=== PATIENT | female | born 1960 ===

== ENCOUNTER 2019-12-01 14:31 | Inpatient (IN) | payer BC ==
[2019-12-01 15:47] LABS: #Eosinphils 0.4 thou/uL (0.0-0.7); #Lymphocytes 1.7 thou/uL (1.20-3.40); #Monocytes 0.4 thou/uL (0.11-0.59); #Neutrophils 3.3 thou/uL (1.40-6.50); %Basophils 0.2 % (0.0-1.0); %Eosinophils 6.5 % (0.0-10.0); %Monocytes 7.1 % (0.0-10.0); %Neutrophils 57.2 % (42.0-75.0); Hemoglobin 14.4 g/dL (12.0-16.0); Mean Corpuscular HGB CONC 33.9 g/dL (32.0-36.0); Mean Corpuscular Hemoglobin 27.2 pg (27.0-31.0); Mean Corpuscular Volume 80.3 fL (78.0-98.0); Mean Platelet Volume 10.4 fL (7.4-10.4); Platelet Count 233 thou/uL (130-400); RBC Distribution Width 21.8 % (11.5-14.5); Red Blood Cell (RBC) Count 5.28 mill/uL (4.20-5.40); White Blood Cell (WBC) Count 5.8 thou/uL (4.8-10.8)
[2019-12-01] MEDS ORDERED: cefTRIAXone\\ROCEPHIN 2 GM VIAL ONE (15:48)
[2019-12-01] MEDS ORDERED: Ondansetron ODT 4 MG TAB ONE (16:01)
[2019-12-01 16:04] LABS: Anisocytosis SLIGHT = 6-15 cells (100X) (0-5/hpf); MDiff Complete? YES; Platelet Morphology Comment Appears Adequate; Polychromasia SLIGHT = 2-3 cells (100X) (0-2/hpf); Target Cells SLIGHT = 2-5 cells (100X) (0-1/hpf)
[2019-12-01 16:06] LABS: ALT (SGPT) 19 U/L (8-55); AST (SGOT) 22 U/L (5-34); Albumin 3.9 g/dL (3.5-5.0); Alkaline Phosphatase 116 U/L (40-110); Anion Gap 12 mmol/L (10-20); BUN (Urea Nitrogen) 11 mg/dL (9.8-20.1); Bilirubin, Total 0.2 mg/dL (0.2-1.2); Calc. Creatinine Clearance 0 mL/min (70-130); Calcium 8.9 mg/dL (7.8-10.44); Carbon Dioxide 26 mmol/L (22-29); Chloride 104 mmol/L (98-107); Estimated GFR-MDRD 55; Globulin 2.8 g/dL (2.4-3.5); Glucose 94 mg/dL (70-105); Potassium 3.9 mmol/L (3.5-5.1); Protein, Total 6.7 g/dL (6.0-8.3); Sodium 138 mmol/L (136-145)
[2019-12-01] MEDS ORDERED: Azithromycin 500 MG VIAL ONE (16:34)
--- NOTE | 2019-12-01 18:14 | HP ---
PRIMARY CARE PHYSICIAN: Dr. Campos. REASON FOR ADMISSION: Pneumonia. HISTORY OF PRESENT ILLNESS: A 59-year-old female with no significant medical history, who went to [facility] on November 25, 2019, and they returned on last Saturday. The patient's symptoms started on Saturday. She was feeling fatigued, tired, and cough. She did not have any upper respiratory symptoms. After returning from [place], she went to local urgent care and flu screen was done which was negative, but the patient was empirically given Tamiflu. The patient was instructed to go back for repeat evaluation and the patient had worsening of symptoms and that is why chest x-ray was done on day 1, as well as next day which showed worsening of pneumonia. The patient also had COVID swab done at [facility] earlier today and the patient subsequently admitted from the ER for worsening pneumonia. When I saw this patient, at that time the patient was afebrile, hemodynamically stable and she was on room air. The patient was having cough. She denies any chest pain, but whenever she takes deep breath, she starts coughing. The patient had routine blood test done. The patient also given empiric antibiotic therapy with doxycycline. REVIEW OF SYSTEMS: CONSTITUTIONAL: Negative for weight loss or gain, ability to conduct usual activities. SKIN: Negative for rash, itching. EYES: Negative for double vision, pain. ENT/MOUTH: Negative for nose bleeding, neck stiffness, pain, tenderness. CARDIOVASCULAR: Negative for palpitations, dyspnea on exertion, orthopnea. RESPIRATORY: Negative for shortness of breath, wheezing, cough, hemoptysis, fever or night sweats. GASTROINTESTINAL: Negative for poor appetite, abdominal pain, heartburn, nausea, vomiting, constipation, or diarrhea. GENITOURINARY: Negative for urgency, frequency, dysuria, nocturia. MUSCULOSKELETAL: Negative for pain, swelling. NEUROLOGIC/PSYCHIATRIC: Negative for anxiety, depression. ALLERGY/IMMUNOLOGIC: Negative for skin rash, bleeding tendency. Please see my HPI for pertinent positives and negatives. All other review of systems reviewed and negative except as mentioned in HPI. PAST MEDICAL HISTORY: History of migraine headache, history of CVA without any deficit. PAST SURGICAL HISTORY: Tonsillectomy. PAST PSYCHIATRIC HISTORY: Reviewed and negative. ALLERGIES: SULFA DRUGS. CURRENT HOME MEDICATIONS: The patient did not bring her home medication, unable to review. EMERGENCY ROOM COURSE: The patient has received Rocephin and azithromycin. PAST PSYCHIATRIC HISTORY: Reviewed and negative. SOCIAL HISTORY: The patient is , lives at home with family. No history of tobacco, alcohol, or illicit drug abuse. FAMILY HISTORY: No strong family history of premature coronary artery disease, stroke, or cancer. PHYSICAL EXAMINATION: VITAL SIGNS: Currently blood pressure 140/106, pulse 87, respiratory rate 18, temperature 98.7, saturation 98% on room air. Weight 90.7 kg. GENERAL: The patient is currently alert, awake, in no acute distress. HEENT: Head, normocephalic and atraumatic. NECK: Supple. No JVD. No meningeal signs of irritation. LUNGS: Bibasilar rales noted, no wheezing. No accessory muscles of respiration in use. CARDIAC: S1 and S2 regular, no murmur, no gallop, no rub. ABDOMEN: Soft, bowel sounds present, nontender, nondistended. No organomegaly. No mass. EXTREMITIES: No edema. Good distal pulsation. NEUROLOGIC: Nonfocal examination. SKIN: No skin rash. HEMATOLOGIC: No lymphadenopathy. PSYCHIATRIC: Normal affect. SIGNIFICANT LABORATORY DATA: glued wood tester showing sinus rhythm. Chest x-ray showing worsening interstitial pneumonia, both x-ray reviewed from yesterday and today. CBC; WBC 5.8, hemoglobin 14.4, platelet 233. BMP; sodium 138, potassium 3.9, chloride 104, carbon dioxide 26, BUN 11, creatinine 1.02, glucose 94, calcium 8.9. LFT; AST 22, ALT 19, alkaline phosphatase 116, albumin 3.9. ASSESSMENT AND PLAN: 1. Bilateral interstitial pneumonia, viral. The patient has worsening of infiltration. The patient has suspected COVID virus exposure. At this point, the patient will be kept on airborne and droplet contact precautions. The patient will be given Rocephin and azithromycin as well as Solu-Medrol 40 mg IV q.8 hourly. We will consult Pulmonology for their opinion. We will closely monitor for any hemodynamic compromise. At this point, the patient is overall stable. Follow up on respiratory virus panel as well as COVID virus results. 2. History of cerebrovascular accident without any deficit. 3. Migraine headache, currently stable. 4. History of obesity. 5. Deep venous thrombosis prophylaxis, Lovenox 40 mg subcu daily. GI prophylaxis, Pepcid 20 mg p.o. b.i.d. CODE STATUS: The patient is full code. DISPOSITION PLAN: Based on clinical course. We are expecting the patient's stay in hospital more than 2 midnights. Plan of care discussed with the patient in detail. Job ID: [id number]
[2019-12-01 18:22] VITALS: BMI 31.1
[2019-12-01] MEDS ORDERED: Bisacodyl 10 MG SUPP PR PRN (19:34)
[2019-12-01] MEDS ORDERED: Guaifenesin DM 100-10/5 ML UDCUP PO PRN (19:34)
[2019-12-01] MEDS ORDERED: Loperamide HCl 2 MG CAP PO PRN (19:34)
[2019-12-01] MEDS ORDERED: HYDROcodone/Acetaminophen 5/325 mg Tablet PO PRN (19:34)
[2019-12-01] MEDS ORDERED: Calcium Carbonate 500 MG ChewTAB PO PRN (19:34)
[2019-12-01] MEDS ORDERED: Zolpidem Tartrate 5 MG TAB PO PRN (19:34)
[2019-12-01] MEDS ORDERED: Acetaminophen 325 MG TAB PO PRN (19:34)
[2019-12-01] MEDS ORDERED: Senokot S 8.6-50 MG TAB PO PRN (19:34)
[2019-12-01] MEDS: Sodium Chloride 0.9% 1,000 ML IV SCH (23:11)
[2019-12-01] MEDS: methylPREDNISolone Sod Succ 40 MG VIAL IVP SCH (23:14)
[2019-12-01] MEDS: guaiFENesin ER 600 MG TAB PO SCH (23:14)
[2019-12-01] MEDS: Famotidine 20 MG TAB PO SCH (23:14)
[2019-12-02] MEDS ORDERED: Levothyroxine Sodium 112 MCG TAB PO SCH (06:00)
[2019-12-02] MEDS: methylPREDNISolone Sod Succ 40 MG VIAL IVP SCH (06:45)
[2019-12-02] MEDS: Famotidine 20 MG TAB PO SCH (08:49)
[2019-12-02] MEDS: guaiFENesin ER 600 MG TAB PO SCH (08:50)
[2019-12-02] MEDS: Sodium Chloride 0.9% 1,000 ML IV SCH (08:51)
[2019-12-02] MEDS ORDERED: Saccharomyces boulardii 250 MG CAP PO SCH (09:00)
[2019-12-02] MEDS ORDERED: Amitriptyline HCl 10 MG TAB PO SCH (09:00)
[2019-12-02] MEDS ORDERED: Losartan 25 MG TAB PO SCH (09:00)
[2019-12-02] MEDS ORDERED: Enoxaparin Sodium 40 MG/0.4 ML SYRINGE SC SCH (09:00)
[2019-12-02] MEDS ORDERED: Aspirin Chewable 81 MG TAB PO SCH (09:00)
--- NOTE | 2019-12-02 09:52 | CON ---
DATE OF CONSULTATION: 12/02/2019 REASON FOR CONSULTATION: Possible COVID-19 case. HISTORY OF PRESENT ILLNESS: This is a 59-year-old female, who has been ill for over a week with cough. She had one instance of a fever of 100.7. She had an x-ray showing a left lower lobe infiltrate, which was a little worse than the x-ray 1 week ago. She has not been treated with antibiotics up until yesterday. She feels better today. Has no acute complaints. PAST MEDICAL HISTORY: Remarkable for, 1. Stroke. 2. Migraine headaches. PAST SURGICAL HISTORY: Tonsillectomy. MEDICATIONS: Prior to admission; 1. Aspirin 81 mg daily. 2. Fish oil. 3. Calcium 600 plus D3. 4. Biotin. 5. Amitriptyline 10 mg daily. 6. Sertraline 50 mg daily. 7. Pravastatin 20 mg daily. 8. Cozaar 25 mg daily. 9. Omeprazole 20 mg daily. 10. Levothyroxine 112 mcg daily. REVIEW OF SYSTEMS: Twelve-point review of systems is otherwise negative. PHYSICAL EXAMINATION: VITAL SIGNS: Temperature 97.5, pulse 82, respirations 18, O2 saturation 93% on room air, and blood pressure 113/70. GENERAL: She is awake, alert, in no distress. HEENT: Unremarkable. NECK: No adenopathy or JVD. LUNGS: She has few crackles in left lower lobe. CARDIOVASCULAR: S1 and S2. Regular. ABDOMEN: Soft. EXTREMITIES: No edema. IMAGING DATA: Respiratory virus panel showed positive metapneumovirus. X-ray shows left lower lobe infiltrate. LABORATORY DATA: Sodium 138, potassium 3.9, BUN 11, creatinine 1.0, and glucose 94. White blood cell count 5.8, hematocrit 42.4, and platelet count 233. ASSESSMENT: Community-acquired pneumonia. PLAN: 1. Agree with treatment with antibiotics. 2. I would limit or even stop the corticosteroids. 3. From my standpoint, she can be discharged to home as soon as possible as she is not hypoxic. I cannot rule COVID-19 in or out without results of that test. The treatment for that is supportive. Job ID: [id number]
[2019-12-02 12:30] VITALS: TEMP 98.1
[2019-12-02] MEDS ORDERED: cefTRIAXone\\ROCEPHIN 1 GM in Sodium Chloride 0.9% 100 ML IVPB SCH (16:00)
[2019-12-02] MEDS ORDERED: Azithromycin 500 MG in Sodium Chloride 0.9% 250 ML 250 ML IVPB SCH (17:00)
[2019-12-02 17:40] VITALS: BP 127/85
[2019-12-02] MEDS ORDERED: Pravastatin Sodium 20 MG TAB PO SCH (21:00)
--- NOTE | 2019-12-03 13:04 | DIS ---
DATE OF ADMISSION: 12/01/2019 DATE OF DISCHARGE: 12/02/2019 DISCHARGE DIAGNOSES: Pneumonia, possibly secondary to human metapneumovirus versus COVID-19 versus bacterial pneumonia. CONSULTATION: Dr. Daljit Beard with Pulmonary. PROCEDURES: None. BRIEF HISTORY OF PRESENT ILLNESS: This is a 59-year-old female with a past medical history of migraines, who had presented to the emergency room with a fever of 100.7 and 1-week history of cough. The patient states that she had an x-ray showing a left lower lobe infiltrate that was worse than the x-ray that she had 1 week prior. She was not receiving any antibiotics prior to that. She had recently returned from [place] and went to a local urgent care and tested negative for the flu, but was given Tamiflu regardless. The patient went to [facility] and had a COVID swab done and was sent here due to worsening pneumonia. HOSPITAL COURSE: Possible sepsis secondary to human metapneumovirus with pneumonia/rule out COVID-19: The patient was started on IV ceftriaxone and azithromycin. She underwent repeat influenza testing here at the hospital, which was normal. She had a respiratory viral panel done, which came back positive for human metapneumovirus. The following day, the patient reported that her cough had significantly improved. She denied any chest pain. She was discharged with empiric antibiotics with cefdinir and azithromycin. She was advised to self isolate in her house until her COVID-19 test result comes back. However, it is very likely that this could have just been human metapneumovirus as her procalcitonin was 0.04. DISCHARGE PHYSICAL EXAMINATION: VITAL SIGNS: Temperature 98.1, heart rate 77, respiratory rate 18, O2 saturation 93% on room air, and blood pressure 127/85. GENERAL: The patient is alert, awake, oriented x3. CVS: Regular rate and rhythm with no murmurs, rubs, gallops. LUNGS: Clear to auscultation bilaterally. ABDOMEN: Positive bowel sounds, soft, nontender, nondistended. EXTREMITIES: No edema. LABORATORY DATA: CBC on 11/30: Normal. BMP on 11/30: Normal. Alkaline phosphatase: 125, 116. AST/ALT: Normal. Procalcitonin :0.04. PERTINENT IMAGING: Chest x-ray on 11/29: Interstitial nodular infiltrates in the left lower lobe and to a lesser extent the right lower lobe. Chest x-ray on 11/30: Showed worsening interstitial and airspace opacity in the left lower lobe and lingula. DISCHARGE CONDITION: Stable. ACTIVITY: The patient to self isolate in her house until her COVID-19 is ruled out. DIET: Regular diet. DISCHARGE MEDICATIONS: New medications: 1. Cefdinir 300 mg p.o. q.12 hours for 6 days. 2. Azithromycin 250 mg p.o. daily for 4 days. All other home medications were resumed. DISCHARGE INSTRUCTIONS: The patient is to follow up with her PCP in a week. Consideration of a repeat chest x-ray should be done in 6 weeks. She should self isolate in her house until her COVID-19 test is negative. Job ID: [id number] [facility]
== END 2019-12-02 18:20 | disposition home or self-care (01) | DRG 195 ==
LOC: ERS 14:31 → T4-A 17:59
PROVIDERS: ADMIT Internal Medicine; ATTEND Internal Medicine
DX: J12.89 Other viral pneumonia (principal); G43.909 Migraine, unspecified, not intractable, without status migrainosus; E66.9 Obesity, unspecified; Z68.31 Body mass index [BMI] 31.0-31.9, adult; Z79.82 Long term (current) use of aspirin; Z86.73 Personal history of transient ischemic attack (TIA), and cerebral infarction without residual deficits; Z88.2 Allergy status to sulfonamides
CPT/HCPCS: 36415; 80053; 84145; 85025; 87040; 87633; 96365; 96367; J0456; J0696; J1650; J2920; J7620; Q0162